=== PATIENT | female | born 1960 | race Caucasian/White ===

== ENCOUNTER 2025-05-31 11:04 | Inpatient (IN) ==
[2025-05-31] MEDS: OPTIRAY 320 125ml IV ONE (11:18)
--- NOTE | 2025-05-31 11:39 | CT Scan Report ---
CTA ANGIOGRAPHY OF THE HEAD CLINICAL HISTORY: neuro deficit, acute stroke suspected COMPARISON STUDY: No previous studies for comparison. TECHNIQUE: Helical axial images of the head were obtained following uneventful intravenous administr ation of 119 cc of Optiray. Sagittal and coronal reconstructions were viewed as well as maximal inten sity projections on an independent 3-D workstation. Automated exposure control was utilized for the study. A dose lowering technique was utilized adhering to the principles of ALARA. CT DOSE: 980.02 mGy.cm FINDINGS: There are no lesion suspicious for aneurysm. There are no major intracranial branch occlusi ons. The dural venous sinuses appear patent. There is a origin of the right posterior cerebral artery. There is no hydrocephalus. No masses are delineated. IMPRESSION: Unremarkable CT angiography of the brain. ACT 112: Negative or not required by law. Electronically signed by: Tr Torres M.D. 05/31/2025 11:38 AM
--- NOTE | 2025-05-31 11:41 | CT Scan Report ---
CT SCAN OF THE BRAIN WITHOUT IV CONTRAST CLINICAL HISTORY: Strokelike symptoms. Neurological deficit. COMPARISON STUDY: No priors TECHNIQUE: Unenhanced CT scan of the brain is performed from the vertex to the skull base. Images are reviewed in the axial, sagittal, coronal planes. A dose lowering technique was utilized adhering to the principles of ALARA. FINDINGS: Brain parenchyma: There is age-related involutional change noting mild subcortical and periventricula r microangiopathic disease. There is no hemorrhage, mass effect, or evidence of acute territorial isc hemia by CT criteria. Henderson-white matter differentiation is preserved. No extra-axial fluid collection is seen. Ventricles, sulci, cisterns: Prominent secondary to involutional change. Intracranial vasculature: There is atherosclerotic calcification of the cavernous carotid and vertebr al arteries. Calvarium: Unremarkable. Sinuses and mastoids: The visualized paranasal sinuses are clear. The mastoid air cells are well pneu matized. Orbits: The bony orbits are grossly intact. IMPRESSION: There is no hemorrhage, mass effect, or evidence of acute territorial ischemia by CT brina allen. ACT 112: Negative or not required by law. Electronically signed by: Kapil Galindo M.D. 05/31/2025 11:40 AM
--- NOTE | 2025-05-31 11:46 | CT Scan Report ---
CT angio neck with con CLINICAL HISTORY: 64 years-old Female with neuro deficit, acute stroke suspected. Acute stroke lik e symptoms COMPARISON STUDY: CTA head of same day TECHNIQUE: Following the IV administration of 119 mL of Optiray, CT angiogram of the neck was perform ed from the aortic arch to the skull base. Images are reviewed in the axial, sagittal, and coronal pl anes. 3-D MIPS images are created and assessed. IV contrast was administered without complication. Al l measurements were calculated based on NASCET criteria. A dose lowering technique was utilized adhe ring to the principles of ALARA. FINDINGS: Three-vessel morphology of the thoracic regard. Patency of the innominate and image subclav chauncey arteries. The common carotid arteries are widely patent. There is moderate atherosclerosis of the carotid bulbs bilaterally. There is less than 50% stenosis of the proximal left ICA. There is approx imately 60% stenosis in the proximal right ICA on image 189. The vertebral arteries are codominant an d appear widely patent. Mild pulmonary emphysema. No pneumothorax. There are a few scattered low suspicion solid pulmonary no dules within the lung apices measuring up to 4 mm on the left. Degenerative changes of the spine. IMPRESSION: 1. 60% stenosis of the proximal cervical segment right ICA secondary to atherosclerosis. 2. No aneurysm, dissection, high-grade stenosis or arterial occlusion. 3. Pulmonary emphysema with scattered low suspicion solid pulmonary nodules measuring up to 4 mm. Six -month follow-up chest CT recommended. ACT 112: Negative or not required by law. The above report was generated using voice recognition software. It may contain grammatical, syntax o r spelling errors. Electronically signed by: Dario Schrader M.D. 05/31/2025 11:45 AM
[2025-05-31 11:58] LABS: Hematocrit (blood only) 44.6 % (37.0-47.0); Hemoglobin 14.6 g/dl (12.0-16.0); Immature Granulocytes # (auto) 0.03 K/uL (0.01-0.20); Immature Granulocytes % (auto) 0.4 %; Mean Corpuscular Hemoglobin 30.2 pg (25.0-34.0); Mean Corpuscular Volume 92.1 fL (80.0-100.0); Platelet Count 243 K/uL (130-400); RDW Standard Deviation 42.4 fL (36.4-46.3); Red Blood Count 4.84 M/uL (4.20-5.40); White Blood Count 8.13 K/ul (4.8-10.8)
[2025-05-31 12:14] LABS: Alanine Aminotransferase 9.0 U/L (7-52); Albumin Globulin Ratio 1.3 (0.9-2); Albumin Level 3.7 gm/dl (3.4-5.0); Alkaline Phosphatase 85.0 U/L (34-104); Anion Gap 7.0 (3-11); Bilirubin,Total 0.4 mg/dl (0.2-1.0); Blood Urea Nitrogen 13.0 mg/dl (6-23); Calcium 8.9 mg/dl (8.6-10.3); Carbon Dioxide 25.0 mmol/L (21-32); Chloride 106.0 mmol/L (98-107); Creatinine Clr Calc Pharmacy 68.3 ml/min; Globulin 2.8 gm/dl (2.5-4.0); Glucose 98.0 mg/dl (70-99(Fasting)); Magnesium 1.9 mg/dl (1.7-2.4); Potassium 3.4 mmol/L (3.5-5.1); Sodium 138.0 mmol/L (136-145); Total Protein 6.5 gm/dl (6.0-8.3)
[2025-05-31 12:28] LABS: INR 1.0 (0.9-1.1); Partial Thromboplastin Time 25 Seconds (21-31); Prothrombin Time 10.2 Seconds (9.0-12.0)
--- NOTE | 2025-05-31 13:32 | Emergency Department Note ---
Impression & Plan TIA (transient ischemic attack), Essential hypertension ED Provider Note NAME: DENI CANSECO AGE: 64 SEX: F : 1960 ARRIVES VIA: Walk-In INFORMANT: Patient, ED PROVIDER(S): Gene Pugh MD CHIEF COMPLAINT: Stroke alert HPI: This is a 64-year-old female presenting for a stroke alert. Patient reportedly began having symptoms of confusion and word find difficulty about 30 minutes prior to arrival. provides a history and states that this happened previously and was thought to be due to a stroke. Patient reportedly got a "a blood thinner". As well as a "procedure to suck out the clot ". At her outside hospital. states that symptoms are exactly the same. Upon my assessment, patient alert, oriented, has no current symptoms including headache, vision changes. She states feeling better from before. ROS: See above HPI for pertinent positives & negatives. A total of 10 systems reviewed and were otherwise negative. PAST MEDICAL HISTORY: See Below PAST SURGICAL HISTORY: See Below FAMILY HISTORY: See Below SOCIAL HISTORY: See Below HOME MEDICATIONS: See Below ALLERGIES: See Below VITALS: See Below PHYSICAL EXAMINATION: General: resting comfortably in no acute distress Head: Normocephalic and atraumatic Eyes: Normal inspection, extraocular muscles intact Ear, nose, throat: Normal external exam Neck: Normal range of motion Respiratory: lungs clear to auscultation bilaterally Cardiovascular: Regular rate/rhythm, no murmur GI: soft, nontender, no guarding or rebound Extremities: nontender, moves all extremities Neuro: The patient awake and alert, appropriately conversive, no focal deficits, symmetric faces, NIH 0, oriented x 3, no motor drift, no dysmetria Skin: Warm, dry, and intact MEDICAL DECISION MAKING: This a 64-year-old female presenting for stroke alert. Patient recently well this time with NIH of 0. states that she is doing much better now than when she initially arrived/prior. She is noted back to baseline as per . Patient is always anxious but otherwise has no. Complaints. - CT imaging is currently negative for LVO or intracranial hemorrhage. - Bloodwork is reviewed showing no significant leukocytosis, anemia, electrolyte or creatinine abnormality -At this time patient is not a candidate for thrombolytics as she has NIH of 0 and resolved symptoms. Consider TIA possible. Will admit for further stroke rule out/workup. -Care discussed with Dr. Tejada for admission Differential diagnosis: Stroke, TIA Independent History obtained from: Diagnostics interpreted by me: ECG: ECG independently interpreted by me with normal sinus rhythm, rate of 96, normal axis, normal OR, normal QRS, normal QTc, no ST segment elevations consistent with STEMI criteria Cardiac Monitoring: An order was placed for continuous cardiac monitoring. The monitor shows a rate of 82 with sinus rhythm. Past Med/Surg History Problem List (Updated 05/31/25 @ 18:44 by Gene Pugh MD) COPD (chronic obstructive pulmonary disease) Essential hypertension (Acute) TIA (transient ischemic attack) (Acute) Social History Smoking Status: Current every day smoker Cigarettes Per Day: 8; Hx Alcohol Use: No Hx Substance Use: No Preferred Language: Congolese Communication Ability: Effective [facility] Director Required: No Beliefs That Will Affect Care: None Current Living Situation: Spouse Feels Safe at Home: Yes Assistive Devices: None Allergies Allergies Allergy/AdvReac Type Severity Reaction Status Date / Time No Known Allergies Allergy Unverified 05/31/25 13:57 Home Meds Home Medications Medication Instructions Recorded Confirmed amlodipine 5 mg tablet 10 mg PO DAILY 05/31/25 05/31/25 aspirin 81 mg tablet 81 mg PO DAILY 05/31/25 05/31/25 atorvastatin 40 mg tablet 40 mg PO DAILY 05/31/25 05/31/25 pantoprazole 40 mg tablet,delayed 40 mg PO DAILY 05/31/25 05/31/25 release Results & Data (ED) Vital Signs Vital Signs - 24 hr 05/31/25 11:05 05/31/25 11:34 05/31/25 11:36 Temperature 36.3 C L Temperature Source Temporal Artery Scan Pulse Rate 109 H Pulse Rate [Apical] 96 H Pulse Rate from SpO2 Sensor Respiratory Rate 20 18 Respiratory Effort / Characteristics Non-Labored Non-Labored Spontaneous Respiratory Depth Normal Normal Respiratory Pattern Regular Blood Pressure 145/84 H Blood Pressure [Left Arm] 159/90 H Blood Pressure Mean 104 Blood Pressure Mean [Left Arm] 113 Blood Pressure Position Sitting Pulse Oximetry 95 96 97 Oxygen Delivery Method Room Air Room Air Room Air Sepsis Recent Fever Within 48 Hours No Sepsis New/Unexplained Change in Mental Status No Sepsis Action Taken by Nursing No Action Required 05/31/25 12:15 05/31/25 12:30 Temperature Temperature Source Pulse Rate 83 75 Pulse Rate [Apical] Pulse Rate from SpO2 Sensor 76 Respiratory Rate 22 Respiratory Effort / Characteristics Respiratory Depth Respiratory Pattern Blood Pressure 144/79 H Blood Pressure [Left Arm] Blood Pressure Mean 105 Blood Pressure Mean [Left Arm] Blood Pressure Position Pulse Oximetry 97 Oxygen Delivery Method Room Air Sepsis Recent Fever Within 48 Hours Sepsis New/Unexplained Change in Mental Status Sepsis Action Taken by Nursing Laboratory Data 05/31/25 11:31 05/31/25 11:31 Lab Results 05/31/25 05/31/25 Range/Units 11:30 11:31 WBC 8.13 (4.8-10.8) K/ul RBC 4.84 (4.20-5.40) M/uL Hgb 14.6 (12.0-16.0) g/dl Hct 44.6 (37.0-47.0) % MCV 92.1 (80.0-100.0) fL MCH 30.2 (25.0-34.0) pg MCHC 32.7 (32.0-36.0) g/dL RDW Std Deviation 42.4 (36.4-46.3) fL RDW Coeff of Allyn 12.5 (11.5-14.5) % Plt Count 243 (130-400) K/uL MPV 9.9 (9.4-12.4) fL Immature Gran % (Auto) 0.4 % Neut % (Auto) 65.7 % Lymph % (Auto) 25.3 % [place] % (Auto) 7.1 % Eos % (Auto) 0.6 % Baso % (Auto) 0.9 % Neut # (Auto) 5.34 (1.40-6.50) K/uL Lymph # (Auto) 2.06 (1.20-3.40) K/uL [place] # (Auto) 0.58 (0.11-0.59) K/uL Eos # (Auto) 0.05 (0.00-0.50) K/uL Baso # (Auto) 0.07 (0.00-0.20) K/uL Immature Gran # (Auto) 0.03 (0.01-0.20) K/uL PT 10.2 (9.0-12.0) Seconds INR 1.0 (0.9-1.1) APTT 25 (21-31) Seconds PTT Ratio 0.9 Sodium 138 (136-145) mmol/L Potassium 3.4 L (3.5-5.1) mmol/L Chloride 106 (98-107) mmol/L Carbon Dioxide 25 (21-32) mmol/L Anion Gap 7 (3-11) BUN 13 (6-23) mg/dl Creatinine 0.87 (0.6-1.2) mg/dl Est Cr Clr Drug Dosing 68.3 ml/min eGFR 74.35 BUN/Creatinine Ratio 14.9 (10-20) Glucose 98 (70-99(Fasting)) mg/dl POC Glucose 95 (70-99) mg/dl Calcium 8.9 (8.6-10.3) mg/dl Magnesium 1.9 (1.7-2.4) mg/dl Total Bilirubin 0.4 (0.2-1.0) mg/dl AST 16 (13-39) U/L ALT 9 (7-52) U/L Alkaline Phosphatase 85 (34-104) U/L Troponin I High Sens 4.5 (0-14) pg/ml Total Protein 6.5 (6.0-8.3) gm/dl Albumin 3.7 (3.4-5.0) gm/dl Globulin 2.8 (2.5-4.0) gm/dl Albumin/Globulin Ratio 1.3 (0.9-2) Administered Medications Acetaminophen (Acetaminophen 325 Mg Tab) 650 mg PO Q6H PRN PRN Reason: Fever or headache Stop: 06/30/25 15:06 Last Admin: 05/31/25 17:16 Dose: 650 mg Documented By: TLM Discontinued Medications Ioversol (Optiray 320 125ml) 119 ml IV ONCE ONE Stop: 05/31/25 11:18 Last Admin: 05/31/25 11:18 Dose: 119 ml Documented By: EDK Potassium Chloride (Potassium Chloride Crtab 20 Meq Tabcr) 20 meq PO NOW STA Stop: 05/31/25 13:50 Last Admin: 05/31/25 14:03 Dose: 20 meq Documented By: [facility] Imaging Data Radiologist's Impression: Head CT 05/31/25 11:10 CT SCAN OF THE BRAIN WITHOUT IV CONTRAST CLINICAL HISTORY: Strokelike symptoms. Neurological deficit. COMPARISON STUDY: No priors TECHNIQUE: Unenhanced CT scan of the brain is performed from the vertex to the skull base. Images are reviewed in the axial, sagittal, coronal planes. A dose lowering technique was utilized adhering to the principles of ALARA. FINDINGS: Brain parenchyma: There is age-related involutional change noting mild subcortical and periventricular microangiopathic disease. There is no hemorrhage, mass effect, or evidence of acute territorial ischemia by CT criteria. Henderson-white matter differentiation is preserved. No extra-axial fluid collection is seen. Ventricles, sulci, cisterns: Prominent secondary to involutional change. Intracranial vasculature: There is atherosclerotic calcification of the cavernous carotid and vertebral arteries. Calvarium: Unremarkable. Sinuses and mastoids: The visualized paranasal sinuses are clear. The mastoid air cells are well pneumatized. Orbits: The bony orbits are grossly intact. IMPRESSION: There is no hemorrhage, mass effect, or evidence of acute territorial ischemia by CT criteria. ACT 112: Negative or not required by law. Electronically signed by: Kapil Galindo M.D. 05/31/2025 11:40 AM Head CTA 05/31/25 11:10 CTA ANGIOGRAPHY OF THE HEAD CLINICAL HISTORY: neuro deficit, acute stroke suspected COMPARISON STUDY: No previous studies for comparison. TECHNIQUE: Helical axial images of the head were obtained following uneventful intravenous administration of 119 cc of Optiray. Sagittal and coronal reconstructions were viewed as well as maximal intensity projections on an independent 3-D workstation. Automated exposure control was utilized for the study. A dose lowering technique was utilized adhering to the principles of ALARA. CT DOSE: 980.02 mGy.cm FINDINGS: There are no lesion suspicious for aneurysm. There are no major intracranial branch occlusions. The dural venous sinuses appear patent. There is a origin of the right posterior cerebral artery. There is no hydrocephalus. No masses are delineated. IMPRESSION: Unremarkable CT angiography of the brain. ACT 112: Negative or not required by law. Electronically signed by: Tr Torres M.D. 05/31/2025 11:38 AM Neck CTA 05/31/25 11:10 CT angio neck with con CLINICAL HISTORY: 64 years-old Female with neuro deficit, acute stroke suspected. Acute stroke like symptoms COMPARISON STUDY: CTA head of same day TECHNIQUE: Following the IV administration of 119 mL of Optiray, CT angiogram of the neck was performed from the aortic arch to the skull base. Images are reviewed in the axial, sagittal, and coronal planes. 3-D MIPS images are created and assessed. IV contrast was administered without complication. All measurements were calculated based on NASCET criteria. A dose lowering technique was utilized adhering to the principles of ALARA. FINDINGS: Three-vessel morphology of the thoracic regard. Patency of the innominate and image subclavian arteries. The common carotid arteries are widely patent. There is moderate atherosclerosis of the carotid bulbs bilaterally. There is less than 50% stenosis of the proximal left ICA. There is approximately 60% stenosis in the proximal right ICA on image 189. The vertebral arteries are codominant and appear widely patent. Mild pulmonary emphysema. No pneumothorax. There are a few scattered low suspicion solid pulmonary nodules within the lung apices measuring up to 4 mm on the left. Degenerative changes of the spine. IMPRESSION: 1. 60% stenosis of the proximal cervical segment right ICA secondary to atherosclerosis. 2. No aneurysm, dissection, high-grade stenosis or arterial occlusion. 3. Pulmonary emphysema with scattered low suspicion solid pulmonary nodules measuring up to 4 mm. Six-month follow-up chest CT recommended. ACT 112: Negative or not required by law. The above report was generated using voice recognition software. It may contain grammatical, syntax or spelling errors. Electronically signed by: Dario Schrader M.D. 05/31/2025 11:45 AM Discharge Plan Visit Data Chief Complaint: Neuro Symptoms/Deficit Stated Complaint: STROKE LIKE SYMPTOMS ED Provider: Gene Pugh Discharge Problem: TIA (transient ischemic attack), Essential hypertension Patient Disposition: Admitted As Inpatient Condition: Fair Discharge Instructions Interventions: ED Discharge Assessment Last Done: 05/31/25 14:41
--- NOTE | 2025-05-31 13:49 | History & Physical Report ---
Date of Service May 31, 2025 Assessment & Plan (1) TIA (transient ischemic attack): Plan: Transient inability to understand the spoken word now resolved. No motor deficits whatsoever. 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 Continue aspirin and statin therapy. Obtain brain MRI scan. Occupational Therapy assessment requested (2) Essential hypertension: Plan: Stable. Continue amlodipine (3) COPD (chronic obstructive pulmonary disease): Plan: Stable. Continue current medical management Plan Hopeful discharge to home tomorrow, June 01, if brain MRI scan is negative and she is asymptomatic History of Present Illness Chief Complaint: Transient inability to understand spoken word Primary Care Provider: Casey Mcneil DO 64-year-old white female who had an episode of transient inability to understand the spoken word and confusion which occurred today. She had no motor weakness at all. This was witnessed by her . He states it is similar to the event she had several years ago where she had an acute CVA which did not respond to thrombolytics and she subsequently had emergent cerebral angiography with treatment of an obstruction in the left temporal area with rapid resolution of her symptoms. She had no motor deficits today at all. Currently she appears to have returned to baseline. She is able to understand the spoken word and can speak clearly to me. There are no motor deficits whatsoever. Head CT scan on admission was negative. Head CTA negative. Neck CTA reveals 60% proximal right ICA stenosis. She is placed in observation for further evaluation and treatment Past Med/Surg History Problem List (Updated 05/31/25 @ 13:48 by Fritz Tejada MD) COPD (chronic obstructive pulmonary disease) Essential hypertension TIA (transient ischemic attack) Social History Smoking Status: Unknown if ever smoked Preferred Language: Wolof Feels Safe at Home: Yes Review of Systems 2 Review of Systems: Constitutionalno fever or chills ENTno blurred vision, no double vision, no epistaxis, no sore throat Respiratoryno cough, no wheezing, no shortness of breath Cardiacno palpitations, no chest pain, no syncope Jackie nausea, vomiting, diarrhea, melena, hematochezia GUno urinary retention, no urinary incontinence, no dysuria, no hematuria Musculoskeletalno joint pain, no muscle tenderness Skinno bruising, no rashes, no pruritus Neurono isolated weakness, no paresthesia. Transient inability to understand the spoken word has resolved Psychno depression, no anxiety Physical Exam 2 Physical Exam: General-alert and oriented x3, no fever, no chills HEENT-head atraumatic and normocephalic, pupils equal and reactive to light, extraocular muscles intact Neck-no lymphadenopathy or thyromegaly, trachea midline Chest-clear to auscultation. No rales, wheezing or rhonchi Cardiac-regular rate and rhythm, normal S1 and S2 Abdomen-normal bowel sounds, no hepatosplenomegaly Extremities-no cyanosis, clubbing, or edema Neuro-cranial nerves II through XII intact, motor and sensory function within normal limits, strength symmetrical, no focal deficits Psych-normal affect, normal mood Results & Data Results & Data Vital Signs (Past 12 Hours) Vital Signs Temp Pulse Pulse Resp BP BP Pulse Ox 05/31/25 12:30 75 22 144/79 H 97 05/31/25 12:15 83 05/31/25 11:36 97 05/31/25 11:34 96 H 18 159/90 H 96 05/31/25 11:05 36.3 C L 109 H 20 145/84 H 95 O2 Del Method 05/31/25 12:30 Room Air 05/31/25 12:15 05/31/25 11:36 Room Air 05/31/25 11:34 Room Air 05/31/25 11:05 Room Air Laboratory Results 05/31/25 11:31 05/31/25 11:31 Code Status & VTE Plan Code Status Full code PG Care Time/CCT Total # of Minutes Spent Total Time Spent with Patient: Total time spent is greater than 50% in coordination of care (as documented) at patient's floor/unit and/or counseling patient: Coding Level of Care Code 69388 INT INP/OBS CARE 3/75MIN Diagnoses TIA (transient ischemic attack) G45.9 Essential hypertension I10 COPD (chronic obstructive pulmonary disease) J44.9
[2025-05-31] MEDS: POTASSIUM CHLORIDE CRTAB 20 MEQ TABCR PO STA (14:03)
[2025-05-31] MEDS ORDERED: ONDANSETRON INJ 2 MG/ML 2 ML VIAL IV PRN (15:07)
--- NOTE | 2025-05-31 16:48 | CT Scan Report ---
Exam(s): CT HEAD Without Contrast EXAM: CT Head Without Intravenous Contrast CLINICAL HISTORY: Recurrence of Sx after admit TECHNIQUE: Axial computed tomography images of the head/brain without intravenous contrast. CTDI is 62.99 mGy and DLP is 1098.96 mGy-cm. Automated exposure control was utilized for the study. A dose lowering technique was utilized adhering to the principles of ALARA. COMPARISON: No relevant prior studies available. FINDINGS: Brain: No intracranial hemorrhage, mass-effect or midline shift. No abnormal extra axial fluid. No evidence of acute infarct. Mild periventricular white matter hypodensities are most consistent with chronic microangiopathy. Ventricles: Unremarkable. No ventriculomegaly. Bones/joints: Unremarkable. No acute fracture. Soft tissues: Unremarkable. Sinuses: Unremarkable as visualized. No acute sinusitis. Mastoid air cells: Unremarkable as visualized. No mastoid effusion. IMPRESSION: No acute intracranial finding. Communications: Call Doctor Stroke Electronically signed by: Juani Caldwell MD 05/31/25 16:47 PM
[2025-05-31] MEDS: ACETAMINOPHEN 325 MG TAB PO PRN (17:16)
--- NOTE | 2025-05-31 19:17 | Communication Note ---
Date of Service: May 31, 2025 I was contacted by the nurse in the evening that the patient's home medications were not ordered. Her repeat head CT during her stroke alert on the floor was negative. Her blood pressure was 147/79 with pulse 82. I ordered her home amlodipine, aspirin, atorvastatin, and pantoprazole.
[2025-05-31] MEDS ORDERED: clonazePAM 0.25 MG OD TAB PO PRN (20:54)
[2025-05-31] MEDS: ATORVASTATIN 40 MG TAB PO SCH (21:07)
--- NOTE | 2025-05-31 22:51 | Magnetic Resonance Report ---
Exam(s): MRI HEAD Without Contrast EXAM: MR Head Without Intravenous Contrast CLINICAL HISTORY: Reason for exam: TIA, pld CVA. OTHER: Other Notes: stroke R/O TECHNIQUE: Magnetic resonance images of the head/brain without intravenous contrast in multiple planes. COMPARISON: Prior Head CT from 05-31-2025. FINDINGS: Brain: Mild nonspecific white matter changes. No mass. No hemorrhage. No acute infarct. The flow voids at the base the brain are intact. Ventricles: Unremarkable. No ventriculomegaly. Bones/joints: Unremarkable. No acute fracture. Sinuses: Unremarkable as visualized. No acute sinusitis. Mastoid air cells: Unremarkable as visualized. No mastoid effusion. Orbits: Unremarkable as visualized. IMPRESSION: No evidence of acute intracranial pathology. Electronically signed by: Gayathri Feliz MD 05/31/25 22:50 PM
[2025-06-01 06:10] LABS: Hematocrit (blood only) 43.9 % (37.0-47.0); Hemoglobin 14.8 g/dl (12.0-16.0); Immature Granulocytes # (auto) 0.01 K/uL (0.01-0.20); Immature Granulocytes % (auto) 0.1 %; Mean Corpuscular Hemoglobin 30.7 pg (25.0-34.0); Mean Corpuscular Volume 91.1 fL (80.0-100.0); Platelet Count 225 K/uL (130-400); RDW Standard Deviation 41.5 fL (36.4-46.3); Red Blood Count 4.82 M/uL (4.20-5.40); White Blood Count 7.56 K/ul (4.8-10.8)
--- NOTE | 2025-06-01 06:12 | Electrocardiogram Report ---
Test Reason : Blood Pressure : */* mmHG Vent. Rate : 96 BPM Atrial Rate : 96 BPM P-R Int : 138 ms QRS Dur : 100 ms QT Int : 354 ms P-R-T Axes : 80 40 67 degrees QTcB Int : 447 ms Normal sinus rhythm Nonspecific ST abnormality No previous ECGs available Confirmed by Augustin Vaughan ([id number]) on 06/01/2025 6:11:47 AM Referred By: REFERRED SELF Confirmed By: Augustin Vaughan
[2025-06-01 06:37] LABS: Anion Gap 8.0 (3-11); Blood Urea Nitrogen 12.0 mg/dl (6-23); Calcium 9.2 mg/dl (8.6-10.3); Carbon Dioxide 26.0 mmol/L (21-32); Chloride 107.0 mmol/L (98-107); Creatinine Clr Calc Pharmacy 62.4 ml/min; Glucose 81.0 mg/dl (70-99(Fasting)); Potassium 4.1 mmol/L (3.5-5.1); Sodium 141.0 mmol/L (136-145)
[2025-06-01] MEDS ORDERED: PHARMACIST DISCHARGE MED REC CONSULT PRN (07:51)
[2025-06-01] MEDS: ASPIRIN 81 MG ECTAB PO SCH (07:52)
[2025-06-01] MEDS ORDERED: ATORVASTATIN 40 MG TAB PO SCH (09:00)
--- NOTE | 2025-06-01 10:44 | XRay Report ---
SINGLE VIEW CHEST CLINICAL HISTORY: Change in mental status FINDINGS: An AP, portable, upright chest radiograph is obtained. No prior studies are available for c omparison at the time of dictation. An electronic device projects over the left lower chest. The hear t is enlarged noting atherosclerotic calcification of the thoracic aorta. The pulmonary vasculature i s noncongested. The lungs and pleural spaces are clear. No pneumothorax is seen. The skeletal structu res are osteopenic. The bony thorax is grossly intact. An apparent thin linear lucency below the left hemidiaphragm likely represents the anterior and posterior portions the diaphragm. IMPRESSION: 1. Cardiomegaly with no active disease in the chest. 2. An apparent thin linear lucency below the left hemidiaphragm likely represents double density from the left diaphragm. If there is concern for intraperitoneal free air then supine and erect abdominal radiographs should be obtained. ACT 112: Negative or not required by law. Electronically signed by: Kapil Galindo M.D. 06/01/2025 10:43 AM
[2025-06-01 11:27] LABS: Appearance Urine Slightly Cloudy (Clear); Glucose Urine UA Negative (Negative)
[2025-06-01 11:38] LABS: Bacteria Urine Automated None Seen (None Seen); Epithelial Cell Urine Auto 0-2 /hpf (0-2); WBC Urine Automated 0-5 /hpf (0-5)
[2025-06-01] MEDS ORDERED: STROKE PATIENT DISCHARGE STA (14:12)
--- NOTE | 2025-06-01 14:13 | Discharge Summary ---
Discharge Summary Date of Service June 01, 2025 Principal Dx & Hospital Course #1 = Principal Diagnosis (1) TIA (transient ischemic attack): (2) Essential hypertension: (3) COPD (chronic obstructive pulmonary disease): Plan Tuyet Davalos is a 64 year old female admitted to [facility] from May 31 - 2024 due to stroke-like symptoms. Suspect most likely this is recrudescence of her prior stroke. No new stroke was seen on brain MRI. Symptoms resolved on discharge. Suspect this is due to your recent stress and infection. However transient ischemic attack cannot be ruled out at this time and on further discussion recommend adding clopidogrel to her medication regimen for the next 3 weeks and following up with your neurologist for ongoing recommendations as an outpatient. Notes For Next Care Provider Follow up with her neurologist for clearance for her upcoming surgery and ongoing antiplatelet management Medication Changes From Visit Clopidogrel for 3 weeks then go back to aspirin alone Admission HPI Per Admitting Provider 64-year-old white female who had an episode of transient inability to understand the spoken word and confusion which occurred today. She had no motor weakness at all. This was witnessed by her . He states it is similar to the event she had several years ago where she had an acute CVA which did not respond to thrombolytics and she subsequently had emergent cerebral angiography with treatment of an obstruction in the left temporal area with rapid resolution of her symptoms. She had no motor deficits today at all. Currently she appears to have returned to baseline. She is able to understand the spoken word and can speak clearly to me. There are no motor deficits whatsoever. Head CT scan on admission was negative. Head CTA negative. Neck CTA reveals 60% proximal right ICA stenosis. She is placed in observation for further evaluation and treatment Discharge Exam Constitutional WD/WN, vitals as above Respiratory normal respiratory effort, lungs clear to auscultation Cardiovascular RRR, no murmur, no edema Gastrointestinal (Abdomen) normal bowel sounds, soft, nontender, no hepatosplenomegaly Neurologic CN's II-XI intact bilaterally, moves all extremities and awake; no focal motor deficits Psychiatric A+Ox3, euthymic affect Discharge Plan Discharge Items Patient Disposition: Home - Self-Care Reason For Visit: TIA Discharge Diagnosis: Recrudescence of prior stroke symptoms vs possible transient ischemia attack (TIA) Condition on Discharge: Good Activity: Resume your previous activity Non-emergency contact: Primary Care Provider Call non-emergency contact if: you have any medication questions and your s ymptoms worsen Follow-up/Referrals: Casey Mcneil, DO [Primary Care Provider] - (PLEASE CALL AND MAKE A FOLLOW UP APPT WITHIN 7-10 DAYS AFTER DISCHARGE ) Diet: Regular Addtl Attending Provider Instructions: You were admitted to [facility] from May 31 - 2024 due to stroke-like symptoms. Suspect most likely this is recrudescence of your prior stroke. No new stroke was seen on brain MRI. Suspect this is due to your recent stress and infection. However TIA (transient ischemic attack) cannot be ruled out at this time and on further discussion recommend adding clopidogrel to your medication regimen for the next 3 weeks and following up with your neurologist for ongoing recommendations as an outpatient. You surgeon will need to know about the addition of clopidogrel for your upcoming surgery. Please continue to get your tooth abscess treatment as previously arranged. Pending Studies at Discharge: No Stand-Alone Forms: My [facility], Smoking Cessation, Medications to Prevent Stroke Medications and DC Order Prescriptions: New clopidogrel 75 mg tablet 75 mg PO DAILY Qty: 30 0RF Continued atorvastatin 40 mg Tablet 40 mg PO DAILY amlodipine 5 mg Tablet 10 mg PO DAILY pantoprazole 40 mg Tablet,Delayed Release (Dr/Ec) 40 mg PO DAILY aspirin 81 mg Tablet 81 mg PO DAILY Discharge Orders: Discharge Order (Routine); Ordered 06/01/25 Ordered By: Rubén Pineda Admission Data Admit Date/Time: 05/31/25 13:41 Attending Provider: Rubén Pineda Admit Provider: Fritz Tejada Primary Care Provider: Casey Mcneil Other Providers: Fritz Tejada Other Interventions: Discharge Summary Assessment (RN) Last Done: 06/01/25 16:38 Hospital Stay Data Consultations 05/31/25 13:54 ED Decision to Admit Stat Diagnostic Imagining Performed 05/31/25 11:10 CT angio head w con Stat CT angio neck with con Stat CT head/brain wo con Stat 05/31/25 15:07 MRI Brain [MR brain wo con] Urgent 05/31/25 16:28 CT head/brain wo con Stat Pending Results Patient Have Any Pending Studies at Discharge: No Discharge Instructions Given to Patient (Per Discharging Provider) You were admitted to [facility] from May 31 - 2024 due to stroke-like symptoms. Suspect most likely this is recrudescence of your prior stroke. No new stroke was seen on brain MRI. Suspect this is due to your recent stress and infection. However TIA (transient ischemic attack) cannot be ruled out at this time and on further discussion recommend adding clopidogrel to your medication regimen for the next 3 weeks and following up with your neurologist for ongoing recommendations as an outpatient. You surgeon will need to know about the addition of clopidogrel for your upcoming surgery. Please continue to get your tooth abscess treatment as previously arranged. Total Time Total Time Spent Total Time Spent (In Minutes): 40 Coding Level of Care Code 30423 INP/OBS DISCH >30 MIN Diagnoses TIA (transient ischemic attack) G45.9 Essential hypertension I10 COPD (chronic obstructive pulmonary disease) J44.9
--- NOTE | 2025-06-01 14:19 | Pharmacy Report ---
- Date of Service June 01, 2025 - Pharmacy CVA/TIA Medication Review Medications to Prevent Stroke handout has been added to the patients discharge packet. Antiplatelet(s) * Aspirin 81 mg PO daily + clopidogrel 75 mg PO daily x 3 weeks, then followup Cholesterol * High intensity statin: atorvastatin 40 mg daily Therapeutic Anticoagulation * No history of Afib/Aflutter noted Type 2 Diabetes * Patient does not have T2DM
[2025-06-01] MEDS: CLOPIDOGREL BISULFATE 75 MG TAB PO ONE (16:30)
== END 2025-06-01 16:41 | disposition home or self-care (01) | DRG 69 ==
LOC: ED 11:04 → SUATTDRO 13:41 → 2N 13:41
DX: Z79.899 Other long term (current) drug therapy; J44.9 Chronic obstructive pulmonary disease, unspecified; Z79.82 Long term (current) use of aspirin; I10 Essential (primary) hypertension; G45.9 Transient cerebral ischemic attack, unspecified; F17.210 Nicotine dependence, cigarettes, uncomplicated